=== PATIENT | female | born 1965 | race Caucasian/White ===

== ENCOUNTER 2017-05-20 12:03 | Day surgery (SDC) | payer BC ==
[~2017-05-20 12:03] MED LIST: Buffered Lidocaine 0.9% SYRIN* 5 ML/SYR SYRINGE INTRADERM ONE; Dexamethasone IV* 4 MG/ML 1 ML (4 MG) IV SLOW PU ONE; Famotidine TAB* 20 MG PO ONE
[2017-05-20] MEDS ORDERED: Dexamethasone IV* 4 MG/ML 1 ML (4 MG) ONE (12:16)
[2017-05-20] MEDS ORDERED: Clindamycin 900 MG IVPREMIX(* 900 MG/50 ML SDV IV ONE (12:16)
[2017-05-20] MEDS ORDERED: Famotidine TAB* 20 MG ONE (12:16)
[2017-05-20] MEDS ORDERED: Buffered Lidocaine 0.9% SYRIN* 5 ML/SYR SYRINGE ONE (12:17)
[2017-05-20] MEDS ORDERED: Famotidine IV* 10 MG/ML 2 ML (20 mg) ONE (12:37)
[2017-05-20] MEDS ORDERED: Lidocaine 1% MPF wEPI 200,000* 30 ML SDV ONE (15:18)
[2017-05-20] MEDS ORDERED: fentaNYL* 50 MCG/ML 2 ML VIAL (100 MCG VIAL) IV PRN (15:19)
[2017-05-20] MEDS ORDERED: DiMENhydriNATE IV* 50 MG/ML VIAL IV PUSH PRN (15:19)
[2017-05-20] MEDS ORDERED: Naloxone* 0.4 MG/ML 1 ML VIAL IV PRN (15:19)
[2017-05-20] MEDS ORDERED: oxyCODONE/Acetamin 5/325 MG* TAB PO PRN (15:19)
[2017-05-20] MEDS ORDERED: PROCHLORPERAZINE INJ 5 MG/ML 2 ML VIAL IV PRN (15:19)
[2017-05-20] MEDS ORDERED: HYDROcodone/ACETAMIN 5-325 MG* 1 TAB PO PRN (15:19)
[2017-05-20] MEDS ORDERED: Midazolam* 1 MG/ML 2 ML VIAL (2 MG) ONE (15:31)
[2017-05-20] MEDS ORDERED: Mivacurium Chloride* 20 MG/10 ML VIAL IV ONE (15:31)
[2017-05-20] MEDS ORDERED: fentaNYL* 50 MCG/ML 2 ML VIAL (100 MCG VIAL) ONE (15:31)
[2017-05-20] MEDS ORDERED: Propofol* 10 MG/ML 20 ML BTL IV PUSH ONE (15:31)
[2017-05-20] MEDS ORDERED: Lidocaine 2% PF * 5 ML VIAL ONE (15:32)
[2017-05-20] MEDS ORDERED: ROPIVACAINE 5 MG/ML 30 ML BTL (0.5%) ONE (15:35)
[2017-05-20] MEDS ORDERED: EPHEDrine (Pressors)* 50 MG/ML VIAL ONE (16:32)
[2017-05-20] MEDS ORDERED: Phenylephrine INJ* 10 MG/ML 1 ML VIAL (10 MG) ONE (16:42)
[2017-05-20] MEDS ORDERED: Ondansetron INJ* 2 MG/ML VIAL ONE (19:19)
[2017-05-20] MEDS ORDERED: Bupivacaine 0.25% SDV* 30 ML ONE (19:45)
[2017-05-20] MEDS ORDERED: DiMENhydriNATE IV* 50 MG/ML VIAL ONE (20:38)
[2017-05-20 21:53] VITALS: BP 105/58
--- NOTE | 2017-05-24 14:28 | OP ---
OPERATIVE REPORT: DATE OF OPERATION: 05/20/17 DATE OF : 61 SURGEON: Elmer Rodriguez MD SENIOR SALES OPERATIONS ANALYST: LORIE Billy [employer] assistant principal was needed for the procedure to aid in positioning of the arm and retraction. ANESTHESIOLOGIST: Dr. Granados. ANESTHESIA: General with block. PRE-OP DIAGNOSES: Right shoulder rotator cuff tear with acromioclavicular degenerative joint disease. POST-OP DIAGNOSES: 1. Right shoulder rotator cuff tear. 2. Right acromioclavicular degenerative joint disease. 3. Right type 2 superior labrum anterior and posterior tear with long head of the biceps tendinitis. OPERATIVE PROCEDURE: 1. Diagnostic right shoulder arthroscopy. 2. Right shoulder glenohumeral debridement and partial synovectomy. 3. Right biceps tenotomy with subpectoral tenodesis. 4. Right shoulder rotator cuff repair. 5. Right shoulder distal clavicle excision. 6. Right shoulder acromioplasty and subacromial decompression. INDICATIONS: Sara has had progressive shoulder pain. She has failed therapy and antiinflammatory medications and steroid injections. I talked to her about risks and benefits, she had wanted to proceed with surgery. ESTIMATED BLOOD LOSS: 50 mL. COMPLICATIONS: None. FINDINGS: As expected, there is a very large osteophyte off the undersurface of the AC joint. There was a near full-thickness rotator cuff tear in the supraspinatus tendon. There was quite a bit of inflammation about the long head of the biceps tendon and a type 2 SLAP tear. DESCRIPTION OF PROCEDURE: Sara was seen in the preoperative holding area. The correct site, side, and procedure were identified. We came back to the operating room and the arm was prepped and draped in the usual fashion. A time- out was performed. She was positioned in the beech chair position. A block had been performed in the preoperative holding area. I began by creating a posterior portal in a standard fashion with an 11 blade followed by the trocar. The joint was entered. I then created anterior portal using outside-in technique. A 5.5 Titus and Nephew Cannula was placed in this portal. I then began the debridement. A type 2 peel-off SLAP tear was noted. There was quite a bit of biceps tendinitis. The rotator cuff had peeled off the vas majority of its footprint at the anterior and middle supraspinatus tendon. I went ahead and debrided everything back. I performed a biceps tenotomy. The remainder of the diagnostic arthroscopy was unremarkable. The anterior inferior and posterior inferior labrums looked intact. There was no full- thickness articular cartilage wear. There was some synovitis. I then moved my trocar up to the subacromial space. The radiofrequency ablator and the shaver were used to perform subacromial decompression. The coracoacromial ligament was released and the wilbur was used to begin the acromioplasty. There was quite a bit of bleeding and so I went a head and converted to an open acromioplasty. I had made a lateral portal to do the subacromial arthroscopic decompression. I extended the incision a centimeter or two and then split the deltoid taking care to preserve the axillary nerve. A Link retractor was placed. The rotator cuff tear was visualized. I went ahead and mobilized the rotator cuff and used rongeur and curette to create nice bleeding bone at the footprint. I placed 2 Titus and Nephew double loaded suture anchors in the proximal row at the more proximal aspect of the footprint. I used one suture from each anchor and passed this using the Titus and Nephew suture passer through the rotator cuff. All 4 limbs of the tails were then brought back to 1 posterior PushLock anchor. Appropriate tension was set and the suture anchor was driven home completing the rotator cuff repair. I then used the osteotome to perform an open acromioplasty and open partial anterior acromionectomy. I then irrigated out this wound and turned my attention to the distal clavicle. I made a longitudinal incision over the distal clavicle. Dissection was carried down. The superior acromioclavicular ligaments were released. The sagittal saw was used to excise the distal 1 cm of clavicle. I went ahead and took the rongeur and excised the large osteophyte off the undersurface of the acromion as well and off the undersurface of the clavicle as some remained. Once that was completed and everything was nicely decompressed and there were no more spurs impinging on the right rotator cuff, the distal clavicle had been excised. I irrigated out that wound. The superior acromioclavicular ligaments were repaired with 0-Vicryl suture. The deltoid fascia was repaired with 0- Vicryl suture. The subcutaneous tissue was reapproximated with 2-0 Vicryl and the skin was closed with 4-0 nylon suture. All the portals were closed up with 4-0 nylon suture. Everything was infiltrated with 0.25% Marcaine. Wounds were dressed with 4x4, ABDs and foam tape. A cooling device was applied and an abduction sling was applied. She was then woken up and taken to the recovery room in stable condition. She had been positioned in the beech chair for the procedure. [id number]/[facility] #: [id number] SREE
== END 2017-05-20 22:39 | disposition home or self-care (01) ==
LOC: OR 12:03
PROVIDERS: ATTEND Orthopaedic Surgery Hand Surgery
DX: S46.001A Unspecified injury of muscle(s) and tendon(s) of the rotator cuff of right shoulder, initial encounter (principal); M19.011 Primary osteoarthritis, right shoulder; X50.3XXA Overexertion from repetitive movements, initial encounter; Y93.89 Activity, other specified; Y92.89 Other specified places as the place of occurrence of the external cause
CPT/HCPCS: A9270-GY; C1713; C1776; J1100; J1240; J2001; J2250; J2405; J2704; J2795; J3010